=== PATIENT | female | born 1990 | race Caucasian/White ===

== ENCOUNTER 2018-05-05 17:19 | Emergency (ER) | payer OTHER ==
[~2018-05-05] VITALS: Ht 167.6 cm; Wt 81.5 kg
[2018-05-05 17:23] VITALS: TEMP 36.9; Ht 167.6 cm; Wt 81.5 kg
--- NOTE | 2018-05-05 18:23 | EMERGENCY ROOM VISIT NOTE ---
ED Visit Note First contact with patient: 17:29 CHIEF COMPLAINT: Foot pain HISTORY OF PRESENT ILLNESS: This 28-year-old female patient presents to the emergency department by private vehicle complaining of swelling and pain in the right foot at rest and worse with weight bearing for the past 10 days. The patient denies any known injury to the foot. She states the pain started while she was walking on the foot and has become progressively worse. She is able to walk on the foot, but states this makes the pain significantly worse. The patient rates the pain as throbbing and 9/10. The patient has tried ibuprofen and Tylenol with minimal relief of the pain. No numbness or weakness. No ankle pain. There are no lacerations of the foot. The patient is able to move all of their toes and their ankle without pain. No previous fracture to this foot. She denies any back pain, hip pain, knee pain, or calf pain. REVIEW OF SYSTEMS: GENERAL: A 6 system review of systems was completed with positives and pertinent negatives in the HPI. ALLERGIES: No known allergies. MEDICATIONS: No current medications. PMH: No significant past medical or surgical history. SOCIAL HISTORY: Lives at home. She is a current everyday smoker. PHYSICAL EXAM: Vital Signs: Reviewed Nurse's notes, vital signs stable. GENERAL : Pleasant and cooperative, in no acute distress, but appears in pain, well- developed, well-nourished. MUSCULOSKELETAL: There is no visual deformity of the right foot. There is no erythema or ecchymosis. There is no warmth. There is tenderness and mild swelling over the dorsal aspect of the right foot. There is no tenderness over the lateral or medial malleolus. No tenderness of the tib/ fib. The range of motion of the right foot is not limited secondary to pain. There is no tenderness over the plantar fascia. The skin is intact and there are no lacerations or puncture wounds. Dorsalis pedis pulse 2+. Capillary refill less than 2 seconds. IMAGING: R FOOT MIN 3 VIEWS ROUTINE CLINICAL HISTORY: 28 years-old Female presenting with foot pain, eval fx. TECHNIQUE: Frontal, oblique, and lateral views of the right foot were obtained. COMPARISON: None. FINDINGS: Sclerotic osseous lesion in the distal phalanx of the first toe, likely bone island. No acute fracture or malalignment. No advanced degenerative change. No radiographic soft tissue abnormality. IMPRESSION: No acute osseous injury. EMERGENCY DEPARTMENT COURSE: I examined the patient. Pain is worsened with plantar and dorsiflexion of the foot. Differential diagnosis includes sprain/ strain, contusion, fracture, dislocation, among others. Patient was given an ice pack for pain. She took ibuprofen and Tylenol prior to arrival. An X-ray of the right foot was reviewed by myself and read by the radiology and reveals no fracture or dislocation. The patient was placed in a postop shoe and instructed on the use of crutches. She was encouraged to follow-up with her primary care provider or orthopedics if her pain does not improve. The patient was discharged home in good condition. Vital Signs Date Time Temp Pulse Resp B/P (MAP) Pulse Ox O2 Delivery O2 Flow Rate FiO2 05/05/18 19:18 87 115/77 98 05/05/18 17:23 36.9 106 20 127/46 97 Room Air Departure Information Impression Primary Impression: Foot pain Dispostion Home / Self-Care Condition GOOD Referrals No Doctor, Assigned (PCP) Matheus Noble MD Patient Instructions ED Crutch Walking, ED Sprain Foot, [facility] Additional Instructions You have been evaluated and treated in the emergency department today for your right foot pain. X-ray today does not show any fractures or other abnormalities. Alternate ice and heat to the area to improve pain. Ibuprofen 600 mg every 6 hours and/or Tylenol 650 mg every 6 hours as needed for the pain. For best results, you may alternate between ibuprofen and Tylenol every 3-4 hours. Avoid weight bearing on the right foot and use crutches and post-op shoe until the pain subsides and you can walk without a limp. Follow up with family doctor or orthopedic surgeon if symptoms persist in 4-5 days. Work Instructions Return To Work: 3 days Problem Qualifiers Primary Impression: Foot pain Laterality: right Qualified Codes: M79.671 - Pain in right foot
--- NOTE | 2018-05-05 18:44 | DIAGNOSTIC IMAGING REPORT ---
R FOOT MIN 3 VIEWS ROUTINE CLINICAL HISTORY: 28 years-old Female presenting with foot pain, eval fx. TECHNIQUE: Frontal, oblique, and lateral views of the right foot were obtained. COMPARISON: None. FINDINGS: Sclerotic osseous lesion in the distal phalanx of the first toe, likely bone island. No acute fracture or malalignment. No advanced degenerative change. No radiographic soft tissue abnormality. IMPRESSION: No acute osseous injury. Electronically signed by: Jesus Biggs M.D. 05/05/2018 6:43 PM Dictated Date/Time: 05/05/2018 6:42 PM
[2018-05-05 19:18] VITALS: BP 115/77; PULSE 87; O2SAT 98
== END 2018-05-05 19:19 | disposition home or self-care (01) ==
LOC: C.EDB 17:21 → C.EDD 19:19
DX: M79.671 Pain in right foot (principal)